=== PATIENT | female | born 1990 | race Caucasian/White ===

== ENCOUNTER 2017-11-13 18:10 | Emergency (ER) | payer BC ==
[~2017-11-13] VITALS: Ht 157.5 cm; Wt 61.7 kg
[2017-11-13 18:32] VITALS: Ht 157.5 cm; Wt 61.7 kg
[2017-11-13 21:08] LABS: BASOPHIL % 0.6 % (0-2); PLATELET COUNT 255 x10^3mcL (130-400); RED CELL DISTRIBUTION WIDTH 12.1 % (11.5-14.5)
[2017-11-13 21:09] LABS: microscopic required? NO
[2017-11-13 21:33] LABS: UA SPECIFIC GRAVITY <=1.005 (1.005-1.035); urine erythrocyte NEGATIVE (NEGATIVE)
[2017-11-13 22:53] VITALS: BP 118/66
== END 2017-11-13 22:53 | disposition home or self-care (01) ==
LOC: ED 18:10
PROVIDERS: Emergency Medicine
DX: O20.0 Threatened abortion (principal); R10.30 Lower abdominal pain, unspecified; J45.909 Unspecified asthma, uncomplicated
CPT/HCPCS: 36415